=== PATIENT | male | born 1965 | race Caucasian/White ===

== ENCOUNTER 2018-10-09 11:16 | Emergency (ER) | payer MEDICAID, SELFPAY ==
[2018-10-09 11:20] VITALS: BP 155/98; PULSE 68; RESP 18; TEMP 36.6; O2SAT 98
--- NOTE | 2018-10-09 11:36 | DI.CT_ITS ---
SYMPTOMS/DIAGNOSIS: LEFT FLANK PAIN RENAL COLIC CT: There are no prior comparison exams. There is a tiny nonobstructing stone at the lower pole of the left kidney. There are two left renal cysts. No ureteral or bladder calculi are seen. The bladder is unremarkable. The prostate is normal in size. The inferior portions of the liver and spleen are unremarkable. The gallbladder shows no abnormal dilatation or wall thickening. The appendix is normal. There is no bowel dilatation or inflammatory change. The descending colon is decompressed. There is a mild T 12 compression fracture which appears old. IMPRESSION: A tiny nonobstructing stone of the left kidney. Left renal cyst. No acute abnormality is seen.
[2018-10-09 12:02] LABS: Bilirubin Negative (Negative); Blood Negative (Negative); Clarity Clear; Glucose Negative (Negative); Ketones Negative (Negative); Leukocyte Esterase Negative (Negative); Nitrite Negative (Negative); Specific Gravity 1.015 (1.005-1.025); Urobilinogen 0.2 EU/dL (Up TO 0.2); pH 7.5 (5-8)
--- NOTE | 2018-10-09 12:47 | ED.GENADUL_ITS ---
Discharge Plan Disposition Patient Disposition: HOME Condition: Improving Discharge Details Chief Complaint: FlankPain Clinical Impression: Acute flank pain Primary Care Provider: None,None ED Provider: Abdoul Alvarez Discharge Instructions Instructions: Kidney Stones (ED), Flank Pain (ED) Additional Instructions: For any continued pain or discomfort you may use [id number] pain medication as needed. Feel free to return to the emergency department for any new or significant worsening of symptoms as we may need to do blood work for further workup Referrals: [facility] Emergency Dept. [Outside] (as needed) Discharge Data Discharge Date/Time-TO BE ENTERED AT DEPARTURE: 10/09/18 14:12 Medical Decision Making Patient presenting to the emergency department for chief complaint of left flank pain. Patient reports that he has had this flank pain for 2 weeks and has not had to have any medication but just has been dealing with it . This morning his urine was dark. He states that he has had some radiation of pain into the testicle but no other urinary symptoms including urinary discharge, palpable pain to the testicle, or swelling. Physical exam is remarkable for left CVA tenderness and left lower quadrant pain to palpation but otherwise exam is unremarkable, normal bowel sounds, normal cardiac and respiratory exam. Concern for possible renal calculi. Patient did bring in urine sample from home showing that significantly dark urine this morning which concerns me for possible mild hematuria. Plan initially was to do labs, CT imaging, and urinalysis for evaluation of renal calculi but patient has severe phobia of needles. Patient's vital signs are otherwise stable, nontoxic in appearance, afebrile so patient was agreeable to still presenting with UA and renal colic CT and patient states clear understanding that possible alternative diagnosis may exists but be difficult to truly find without lab. Patient was ordered Motrin and acetaminophen for pain control but he refused medication. Review of urinalysis is unremarkable and shows no hematuria and was clear at the time that patient presented urine, CT image was reviewed and discussed with radiologist and shows small renal cyst on the left, one small intrarenal stone, otherwise no acute findings noted. These findings were presented to patient whom still states that his pain is stable. I feel that patient may have passed a kidney stone and we were just unable to visualize this on CT scan due to passing in the interim between symptoms this morning and him presenting to the emergency department. I did inform patient again that there are potential other alternative diagnosis which are difficult to make without lab work but patient continues to refuse lab work. Patient was encouraged to return for any new or worsening symptoms. Patient does not have primary care provider and does not want to arrange one at this time. After discussion of diagnosis and plan of care patient has no further needs, questions, or concerns and states clear understanding to return to the emergency department for any worsening symptoms. HPI General Mode of arrival: ambulatory . Date/Time Provider Initiated Documentation: 10/09/18 11:22 . Limitations to Documentation: no limitations . Information obtained by: patient and RN notes reviewed . History of Present Illness 53 year old M presents to the emergency department with the chief complaint of left flank pain, described as moderate, with intensity rated at 5. Quality is described as aching, Patient started experiencing this week(s) (2) and it has been constant. No relieving factors improve symptom(s), No exacerbating factors reported . Patient notes no other symptoms.. Patient did receive the following treatments prior to arrival, none Related Data Allergies Allergy/AdvReac Type Severity Reaction Status Date / Time codeine AdvReac Intermediate Other (See Unverified 10/09/18 11:25 Comment) General Stated Complaint: FlankPain KIANNA: 3 Review of Systems Constitutional Denies chills, Denies fever(s) and Reports poor appetite Cardiovascular Denies chest pain and Denies dyspnea Respiratory Denies dyspnea Gastrointestinal Reports as per HPI, Reports abdominal pain, Denies melena, Denies change in bowel habits, Denies constipation, Denies diarrhea, Denies nausea and Denies vomiting Genitourinary Reports as per HPI, Reports hematuria, Denies difficulty urinating, Reports flank pain (left), Denies penile discharge, Reports testicular pain, Denies urinary hesitancy, Denies urinary incontinence and Denies urinary urgency Integumentary/Breasts Denies rash [facility], [facility] Social History Smoking/Tobacco Use Status: Current every day Exam Const General: cooperative Orientation: alert, awake and oriented x3 Resp Effort & Inspection: normal respiratory effort and able to speak in complete sentences Auscultation: clear to auscultation bilaterally Cardio Rate: regular rate Rhythm: regular rhythm Heart Sounds: S1 normal and S2 normal GI Palpation: soft, no hepatosplenomegaly, not firm, no guarding, no masses, no pulsatile masses, not rigid, no splenomegaly and tender Auscultation: normal bowel sounds Male General Exam: Yes normal external exam, No erythema and No tenderness Penis: normal penis Meatus: meatus normal Scrotum: scrotum normal, not erythematous, no hydroceles, no masses, no scrotal swelling and no varicoceles Testes: normal and no testicular tenderness Back/Spine/Pelvis Back: CVA tenderness (left) Neuro General: alert, awake, oriented x3, gait normal and moves all extremities Course Vital Signs Temperature 36.6 C 10/09/18 11:20 Pulse 68 10/09/18 11:20 Respiratory Rate 18 10/09/18 11:20 Blood Pressure 155/98 H 10/09/18 11:20 Pulse Oximetry 98 10/09/18 11:20 Temperature 36.6 C 10/09/18 11:20 Pulse 68 10/09/18 11:20 Respiratory Rate 18 10/09/18 11:20 Respiratory Effort 10/09/18 11:27 Blood Pressure 155/98 H 10/09/18 11:20 Pulse Oximetry 98 10/09/18 11:20 Oxygen Delivery Method Room Air 10/09/18 11:20 Oxygen Flow Rate 0 10/09/18 11:20 Pain Level 6 10/09/18 11:20 Lab/Test Results Lab/Test Results: Laboratory Tests Range/Units 10/09/18 11:50 Urine Color (Yellow) Yellow Urine Clarity Clear Urine pH (5-8) 7.5 Ur Specific Gary (1.005-1.025) 1.015 Urine Protein (Negative) mg/dL Negative Urine Ketones (Negative) mg/dL Negative Urine Blood (Negative) Negative Urine Nitrite (Negative) Negative Urine Bilirubin (Negative) Negative Urine Urobilinogen (Up TO 0.2) EU/dL 0.2 Ur Leukocyte Esterase (Negative) Negative Urine Glucose (Negative) mg/dL Negative
--- NOTE | 2018-10-09 13:31 | NUR.NOTE ---
Nursing Note: Pt dressed, sitting on edge of bed, no acute distress.
[2018-10-09 13:56] VITALS: BP 139/87; PULSE 70; RESP 18; O2SAT 100
== END 2018-10-09 14:12 | disposition home or self-care (01) ==
PROVIDERS: Emergency Provider Nurse Practitioner Family
DX: R10.32 Left lower quadrant pain (principal)
CPT/HCPCS: 99284; 74176; 81003; 99283

== ENCOUNTER → 2022-05-29 15:04 | Outpatient (CLI) | payer MEDICAID, SELFPAY ==
--- NOTE | 2022-05-29 | DI.RAD_ITS ---
Exam(s) XR SHOULDER RT COMPLETE 2+V EXAM: XR SHOULDER RT COMPLETE 2+V CLINICAL HISTORY: PAIN IN RIGHT SHOULDER--M25.511. TECHNIQUE: 2D digital imaging was performed of the right shoulder. Five images were obtained. AP, Grashey, Y-view and axillary views were obtained. COMPARISON: No exams were available for comparison FINDINGS: BONES: No acute fracture is present. No bony destructive lesion is seen. JOINTS: No dislocation present. Mild degenerative changes are seen at the acromioclavicular joint. SOFT TISSUE: Normal. IMPRESSION: No acute abnormality. DATA REPOSITORY: RADIATION DOSE DELIVERED:
== END ==
PROVIDERS: Visit Provider Nurse Practitioner Family
DX: M25.511 Pain in right shoulder (principal)
CPT/HCPCS: 73030